=== PATIENT | female | born 1945 | race Hispanic/Latino ===

== ENCOUNTER → 2018-11-05 | Day surgery (SDC) | payer MEDICARE ==
[2018-11-02 13:05] LABS: BASOPHILS % 0.8 % (0.0-1.0); EOSINOPHILS # (AUTO) 0.2 (0.0-0.4); EOSINOPHILS % 3.2 % (0.0-6.0); HEMATOCRIT 34.1 % (34.2-44.1); HEMOGLOBIN 11.3 g/dL (12.0-16.0); LYMPHOCYTES # (AUTO) 1.5 (1.0-3.2); LYMPHOCYTES % 28.4 % (18.0-39.1); MEAN CORPUSCULAR HEMOGLOBIN 29.8 pg (28-32); MEAN CORPUSCULAR HGB CONC 33.1 g/dL (31-35); MONOCYTES # (AUTO) 0.6 (0.2-0.8); MONOCYTES % 11.4 % (4.4-11.3); NEUTROPHILS # (AUTO) 2.9 (2.1-6.9); NEUTROPHILS % 55.8 % (38.7-80.0); PLATELET COUNT 205 x10e3/uL (140-360); RED BLOOD COUNT 3.79 x10e6/uL (3.6-5.1); RED CELL DISTRIBUTION WIDTH 13.9 % (11.7-14.4)
[~2018-11-05] MED LIST: ATORVASTATIN CA20 MG PO; GABAPENTIN300 MG PO; HYDROXYCHLOROQ200 MG PO; MELOXICAM7.5 MG PO; OMEPRAZOLE40 MG PO; PROPOFOL IV EMULSION 10 MG/ML 50 ML VIAL ONE; PROZAC20 MG PO; SULFAMETHOXAZO1 EAC1 PO; TRAZODONE HCL100 MG PO; ULTRAM 50MG50 MG PO; ZESTRIL20 MG PO
--- OUTSIDE RECORDS SUMMARY | 2018-11-05 08:54 | XMS REPORT ---
Author Author Elissa Russell Organization [employer] Address Unknown Phone Unavailable Care Team Providers Care Radiology Physician Assistant Name Role Phone Elissa Russell CP Unavailable Allergies, Adverse Reactions, Alerts Substance Reaction Event Type N.K.D.A. 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 Problem Chronic pain disorder G89.4 Active Problem Rheumatoid arthritis without rheumatoid factor, unspecified ankle and foot M06.079 Active Assessment Pain, joint, multiple sites M25.50 Active Assessment Myalgia M79.10 Active Assessment Rheumatoid arthritis without rheumatoid factor, unspecified ankle and foot M06.079 Active Medications Medication Code System Code Instructions Start Date End Date Status Dosage Hydroxychloroquine Sulfate ND 76107167466 200 MG Orally Once a day July 30, 2018 Active 2 tabs Fluoxetine HCl ND 59871756659 10 MG Orally Once a day Active 1 capsule Lisinopril ND 36716303379 10 MG Orally Once a day Active 1 tablet Meloxicam ND 96948645945 7.5 MG Orally Once a day July 30, 2018 Active 1 tab(s) with food as needed Omeprazole ND 96486279199 20 MG Orally Once a day Active 1 capsule Atorvastatin Calcium ND 16223225953 10 MG Orally Once a day Active 1 tablet Tramadol HCl ND 21684166835 50 MG Orally every 6 hrs prn Active 1 tablet as needed Trazodone HCl ND 95088904263 100 MG Orally Once a day Active 1 tablet at bedtime Gabapentin ND 87158142034 100 MG Orally Three times a day Active 1 capsule Vital Signs Date/Time: July 30, 2018 Height 63 in Blood Pressure Diastolic 58 mm Hg Blood Pressure Systolic 124 mm Hg Weight 181.0 lbs Results No Known Results Summary Purpose [employer] Submission
--- OUTSIDE RECORDS SUMMARY | 2018-11-05 08:54 | XMS REPORT ---
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
--- OUTSIDE RECORDS SUMMARY | 2018-11-05 08:54 | XMS REPORT ---
Author Author Elissa Russell Organization [employer] Address Unknown Phone Unavailable Care Team Providers Care Plate Corrector Name Role Phone Elissa Russell CP Unavailable [...]
--- OUTSIDE RECORDS SUMMARY | 2018-11-05 08:54 | XMS REPORT | Continuity of Care Document ---
Author Author Gazzang Address Unknown Phone Unavailable Care Team Providers Care Student Counsellor Name Role Phone Naymit Information [facility] Unavailable Unavailable Problems Problem Status Onset Date Classification Date Reported Comments Source 719.4 - PAIN IN JOINT Active 03/14/2011 [facility] Lumbago due to displacement of intervertebral disc Active Problem 10/27/2018 Elissa Najam Chronic pain disorder Active Problem 10/27/2018 Elissa Najam Rheumatoid arthritis without rheumatoid factor, unspecified ankle and foot Active Problem 10/27/2018 Elissa Najam Pain in joint of left hip Active Diagnosis 10/02/2018 Elissa Najam Counseling NOS Active Diagnosis 10/02/2018 Elissa Najam Peripheral neuropathic pain Active Diagnosis 10/02/2018 Elissa Najam Positive anti-CCP test Active Diagnosis 10/02/2018 Elissa Najam Pain in joint of right hip Active Diagnosis 10/02/2018 Elissa Najam Pain, joint, multiple sites Active Diagnosis 10/02/2018 Elissa Najam Myalgia Active Diagnosis 10/02/2018 Elissa Najam Medications Medication Details Route Status Patient Instructions Ordering Provider Order Date Source Meloxicam 1 tab(s) with food as needed Orally Active 7.5 MG Orally Once a day Naja 01/28/2019 Elissa Najam Hydroxychloroquine Sulfate 2 tabs Orally Active 200 MG Orally Once a day Najam 01/28/2019 Elissa Najam Hydroxychloroquine Sulfate 2 tabs Orally Active 200 MG Orally Once a day Najam 07/30/2018 Elissa Najam Meloxicam 1 tab(s) with food as needed Orally Active 7.5 MG Orally Once a day Naja 07/30/2018 Elissa Najam Fluoxetine HCl 1 capsule Orally Active 10 MG [facility] Ator[facility]atin [facility]cium 1 tablet Orally Active 10 MG [facility] Tramadol HCl 1 tablet as needed Orally Active 50 MG Orally every 6 hrs prn Naja Elissa Najam Lisinopril 1 tablet Orally Active 10 MG Orally Once a day Drew Russell Trazodone HCl 1 tablet at bedtime Orally Active 100 MG Orally Once a day Drew Russell Gabapentin 1 capsule Orally Active 300 MG Orally Three times a day Drew Russell Omeprazole 1 capsule Orally Active 20 MG Orally Once a day Drew Russell Gabapentin 1 capsule Orally Active 100 MG Orally Three times a day Drew Russell Allergies, Adverse Reactions, Alerts Substance Category Reaction Severity Reaction type Status Date Reported Comments Source N.K.D.A. Adverse Reaction Info Not Available Adverse Reaction Active 09/30/2018 Elissa Russell Immunizations No Data Provided for This Section Results No Data Provided for This Section Pathology Reports No Data Provided for This Section Diagnostic Reports Report Value Date Source Retroperitoneal Complete US RENAL SONOGRAM CLINICAL HISTORY: Hematuria COMPARISON IMAGING: None. FINDINGS: Right kidney: Measures 11.3 x 4.2 x 5.2 cm. Renal cortex measures 1.1 cm. No hydronephrosis, suspicious mass, or large shadowing calculus. Left Kidney: Measures 10.7 x 5.7 x 5.8 cm. Renal cortex measures 1.3 cm. No hydronephrosis, suspicious mass, or large shadowing calculus. Bladder: No mural nodularity or suspicious intraluminal echoes are identified. Both ureteral jets are present. Vascular: Visualized portions of the IVC are patent. There is no obvious aneurysmal dilatation of the aorta. The origins of the common iliac arteries are not seen sonographically. IMPRESSION: No significant abnormality. 09/14/2013 [facility] [place] [facility] [place] - DIGITAL MAMMO SCREENING MARTIN MA BILATERAL DIGITAL SCREENING MAMMOGRAM WITH CAD: 02/11/2013 CLINICAL: Routine. Current study was evaluated with a Computer Aided Detection (CAD) system. Comparison is made to exam dated: 11/09/2010 mammogram - [facility]. There are scattered fibroglandular elements in both breasts that could obscure a lesion on mammography. No significant masses, calcifications, or other findings are seen in either breast. There has been no significant interval change. IMPRESSION: NEGATIVE There is no mammographic evidence of malignancy. A screening mammogram in one year is recommended. Dr. Gilberto Galarza M.D. eoc/penrad:02/11/2013 13:17:31 Rn Pediatric Icu: Muna NGUYEN)(Bernabe), [facility] This exam was dictated and interpreted by [id number] for GAVIOTA Villanueva. letter sent: Normal exam Mammogram BI-RADS: 1 Negative 02/11/2013 IV[facility] Re[facility] Consultation Notes No Data Provided for This Section Discharge Summaries No Data Provided for This Section History and Physicals No Data Provided for This Section Vital Signs Vital Sign Value Date Comments Source Height 63 09/30/2018 Elissa Najam Diastolic (mm Hg) 63 09/30/2018 Elissa Najam Systolic (mm Hg) 117 09/30/2018 Elissa Najam Weight 182.8 09/30/2018 Elissa Najam Height 63 07/30/2018 Elissa Najam Diastolic (mm Hg) 58 07/30/2018 Elissa Najam Systolic (mm Hg) 124 07/30/2018 Elissa Najam Weight 181.0 07/30/2018 Elissa Najam Encounters Location Location Details Encounter Type Encounter Number Reason For Visit Attending Provider ADM Date DC Date Status Source OD [id number] 719.4 - PAIN IN JOINT TESFAYE EASLEY 03/14/2011 Active GAVIOTA ENRIQUE [facility] [place] [facility] [id number] Tesfaye Easley 09/14/2013 09/15/2013 IV[facility] Rehman Procedures No Data Provided for This Section Assessment and Plan No Data Provided for This Section Plan of Care No Data Provided for This Section Social History No Data Provided for This Section Family History No Data Provided for This Section Advance Directives No Data Provided for This Section Functional Status No Data Provided for This Section
--- OUTSIDE RECORDS SUMMARY | 2018-11-05 08:54 | XMS REPORT ---
Author Author Elissa Russell Organization [employer] Address Unknown Phone Unavailable Care Team Providers Care Leak Detection Engineer Name Role Phone Elissa Russell CP Unavailable [...] Instructions Start Date End Date Status Dosage Fluoxetine HCl ND 16450681525 10 MG Orally Once a day Active 1 capsule Meloxicam ND 72285653665 7.5 MG Orally Once a day Jan 28, 2019 Active 1 tab(s) with food as needed Hydroxychloroquine Sulfate ND 68562434900 200 MG Orally Once a day Jan 28, 2019 Active 2 tabs Atorvastatin Calcium ND 21138050131 10 MG Orally Once a day Active 1 tablet Tramadol HCl ND 07216408136 50 MG Orally every 6 hrs prn Active 1 tablet as needed Lisinopril ND 14921301572 10 MG Orally Once a day Active 1 tablet Trazodone HCl ND 05600540720 100 MG Orally Once a day Active 1 tablet at bedtime Gabapentin ND 23516450606 300 MG Orally Three times a day Active 1 capsule Omeprazole ND 24700589799 20 MG Orally Once a day Active 1 capsule Vital Signs Date/Time: September 30, 2018 Height 63 in Blood Pressure Diastolic 63 mm Hg Blood Pressure Systolic 117 mm Hg Weight 182.8 lbs Results No Known Results Summary Purpose [employer] Submission
--- OUTSIDE RECORDS SUMMARY | 2018-11-05 08:54 | XMS REPORT | Summary of Care ---
Author Organization Unknown Address Unknown Phone Unavailable Encounter [facility] Bartntr_[email or web address](PIERCE) [id number] Date(s): 09/14/13 - 09/14/13 [facility] Outpatient Imaging - [address] [address]- [place] Discharge Disposition: Home Physician Attending: Jeff Brown MD Reason for Visit 599.7 - HEMATURIA Problem List No data available for this section Allergies, Adverse Reactions, Alerts No data available for this section Medications No data available for this section Medications Administered During Your Visit No data available for this section Immunizations No data available for this section
[2018-11-05 12:15] VITALS: BP 120/78
== END | disposition home or self-care (01) ==
LOC: OR 08:52
PROVIDERS: ATTEND Internal Medicine
DX: K31.9 Disease of stomach and duodenum, unspecified (principal); R11.2 Nausea with vomiting, unspecified; K21.9 Gastro-esophageal reflux disease without esophagitis; R19.4 Change in bowel habit; Z80.42 Family history of malignant neoplasm of prostate; Z80.8 Family history of malignant neoplasm of other organs or systems; Z01.810 Encounter for preprocedural cardiovascular examination; Z01.812 Encounter for preprocedural laboratory examination; I10 Essential (primary) hypertension; G89.29 Other chronic pain; F41.9 Anxiety disorder, unspecified; F32.9 Major depressive disorder, single episode, unspecified; K58.9 Irritable bowel syndrome, unspecified; K57.30 Diverticulosis of large intestine without perforation or abscess without bleeding; K44.9 Diaphragmatic hernia without obstruction or gangrene; K29.50 Unspecified chronic gastritis without bleeding
CPT/HCPCS: 36415; 43239; 45378; 85025; 93005; J2704